=== PATIENT | male | born 1990 | race African-American/Black ===

== ENCOUNTER 2025-08-20 22:34 | Emergency (ER) | payer MEDICAID ==
[~2025-08-20] VITALS: Ht 175.3 cm; Wt 75.0 kg
[2025-08-20 22:38] VITALS: TEMP 36.7; O2SAT 99
[2025-08-21] MEDS: AMOXICILLIN/POTASSIUM CLAVULANATE 875/125MG TAB PO ONE (00:08)
[2025-08-21] MEDS: IBUPROFEN 600MG TABLET PO ONE (00:08)
[2025-08-21] MEDS ORDERED: NAPR-1164 MT (02:34)
[2025-08-21] MEDS ORDERED: AMOX1TAB16 MT (02:34)
[2025-08-21 02:50] VITALS: BP 139/82; PULSE 70; RESP 15; O2SAT 100
== END 2025-08-21 02:55 | disposition home or self-care (01) ==
LOC: ER 22:56
DX: L03.115 Cellulitis of right lower limb (principal)
CPT/HCPCS: 73660; 99283

== ENCOUNTER 2025-09-02 22:37 | Emergency (ER) | payer MEDICAID ==
[~2025-09-02] VITALS: Ht 175.3 cm; Wt 75.0 kg
[~2025-09-02 22:37] MED LIST: AMOX1TAB16 MT; NAPR-1164 MT
[2025-09-02 22:44] VITALS: O2SAT 98
[2025-09-02 23:00] VITALS: BP 153/111; PULSE 73; RESP 18; TEMP 36.7; O2SAT 100
[2025-09-03] MEDS: ACETAMINOPHEN 500MG TABLET PO ONE (01:27)
[2025-09-03 02:10] LABS: BASOPHILS % 0.8 % (0.0-2.0); EOSINOPHILS % 4.5 % (0.0-5.0); HEMATOCRIT. 48.1 % (42.0-52.0); HEMOGLOBIN. 15.8 g/dL (14.0-18.0); LYMPHOCYTES % 52.7 % (20.0-50.0); MEAN PLATELET VOLUME 9.3 fl (7.4-10.4); MONOCYTES % 7.9 % (2.0-8.0); NEUTROPHILS % 34.1 % (40.0-76.0); PLATELET 214 x1000/uL (130-400); RED BLOOD CELL COUNT 5.23 mill/uL (4.7-6.1); RED CELL DISTRIBUTION WIDTH 13.4 % (11.6-14.6)
[2025-09-03 02:21] LABS: CREATININE 1.0 mg/dL (0.6-1.3); UREA NITROGEN BLOOD 9 mg/dL (9-23)
[2025-09-03 02:23] LABS: ASPARTATE AMINOTRANSFERASE 66 IU/L (<34); BILIRUBIN DIRECT 0.1 mg/dL (<=3.0); BILIRUBIN TOTAL 0.5 mg/dL (0.1-1.0); PROTEIN TOTAL 7.0 g/dL (6.0-8.3)
[2025-09-03 03:17] LABS: TROPONIN I HIGH SENSITIVITY 4 ng/L (3.0-53)
[2025-09-03] MEDS ORDERED: SUMA100T16 MT (04:52)
[2025-09-03] MEDS ORDERED: IBUP-1455 MT (04:52)
[2025-09-03] MEDS ORDERED: SUMA11AE2 BOTHNSTRLS (04:52)
== END 2025-09-03 05:08 | disposition home or self-care (01) ==
LOC: ER 22:37
DX: G44.009 Cluster headache syndrome, unspecified, not intractable (principal); R55 Syncope and collapse; R74.01 Elevation of levels of liver transaminase levels; R74.8 Abnormal levels of other serum enzymes; Z98.890 Other specified postprocedural states; Z79.01 Long term (current) use of anticoagulants
CPT/HCPCS: 36415; 71045; 80048; 80076; 84484; 85025; 93005; 99285

== ENCOUNTER 2025-09-07 14:07 | Emergency (ER) | payer MEDICAID ==
[~2025-09-07] VITALS: Ht 175.3 cm; Wt 73.0 kg
[~2025-09-07 14:07] MED LIST changes: +IBUP-1455 MT; +SUMA100T16 MT; +SUMA11AE2 BOTHNSTRLS
[2025-09-07 14:17] VITALS: O2SAT 96
[2025-09-07 15:41] LABS: BASOPHILS % 0.8 % (0.0-2.0); EOSINOPHILS % 4.2 % (0.0-5.0); HEMATOCRIT. 49.7 % (42.0-52.0); HEMOGLOBIN. 16.6 g/dL (14.0-18.0); LYMPHOCYTES % 42.1 % (20.0-50.0); MEAN PLATELET VOLUME 9.0 fl (7.4-10.4); MONOCYTES % 8.3 % (2.0-8.0); NEUTROPHILS % 44.6 % (40.0-76.0); PLATELET 242 x1000/uL (130-400); RED BLOOD CELL COUNT 5.48 mill/uL (4.7-6.1); RED CELL DISTRIBUTION WIDTH 13.3 % (11.6-14.6)
[2025-09-07 15:55] LABS: PROTEIN TOTAL 7.5 g/dL (6.0-8.3)
[2025-09-07 15:56] LABS: ASPARTATE AMINOTRANSFERASE 29 IU/L (<34); BILIRUBIN DIRECT 0.1 mg/dL (<=3.0); BILIRUBIN TOTAL 0.6 mg/dL (0.1-1.0)
[2025-09-07 16:49] LABS: HEPATITIS A AB IGM NEGATIVE (Negative)
[2025-09-07 16:50] LABS: HEPATITIS B CORE AB IGM NEGATIVE (Negative); HEPATITIS C AB NON REACTIVE (Neg) (Negative)
[2025-09-07 17:14] VITALS: BP 145/97; PULSE 75; RESP 18; TEMP 36.7; O2SAT 96
== END 2025-09-07 17:17 | disposition home or self-care (01) ==
LOC: ER 14:07
DX: R74.8 Abnormal levels of other serum enzymes (principal); Z98.890 Other specified postprocedural states; Z79.899 Other long term (current) drug therapy
CPT/HCPCS: 36415; 76705; 80076; 85025; 86705; 86709; 86803; 87340; 99284